=== PATIENT | female | born 1990 | race Caucasian/White ===

== ENCOUNTER 2017-03-16 21:04 | Inpatient (IN) | payer OTHER ==
[~2017-03-16] VITALS: Ht 152.4 cm; Wt 50.0 kg
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
[2017-03-16 22:13] LABS: ABSOLUTE BASOPHIL COUNT 0.1 /CUMM (0.0-0.2); ABSOLUTE EOSINOPHIL COUNT 0.2 /CUMM (0.0-0.7); ABSOLUTE GRANULOCYTE CT 3.6 /CUMM (1.4-6.5); ABSOLUTE LYMPH COUNT 1.7 /CUMM (1.2-3.4); ABSOLUTE MONOCYTE COUNT 0.9 /CUMM (0.10-0.60); EOSINOPHIL % 2.8 % (0-5); GRANULOCYTE % 55.8 % (42.2-75.2); HEMATOCRIT 39.5 % (37-47); MEAN CORPUSCULAR HGB 29.5 PG (27.0-31.0); MEAN CORPUSCULAR HGB CONC 33.6 G/DL (33.0-37.0); MEAN PLATELET VOLUME 9.8 FL (7.4-10.4); PLATELET COUNT 333 /CUMM (130-400); RBC DISTRIBUTION WIDTH 13.8 % (11.5-14.5); RED BLOOD CELL CT 4.49 /CUMM (4.20-5.40); WHITE BLOOD CELL COUNT 6.5 /CUMM (4.8-10.8)
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
[2017-03-18] MEDS ORDERED: ALPRAZOLAM0.25 M1 PO (12:14)
[2017-03-18] MEDS ORDERED: VITAMIN D250000 UNIT PO (12:16)
[2017-03-18] MEDS ORDERED: RITALIN5 M2 PO (12:17)
[2017-03-18] MEDS ORDERED: TOLTERODINE TART4 M1 PO (12:18)
[2017-03-18] MEDS ORDERED: GABAPENTIN100 M2 PO (12:19)
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
--- NOTE | 2017-03-18 14:36 | SOCIAL WORKER PROG NOTE PSYCH ---
Social Work Progress Note Progress Note Pt is unable to participate in social hx due to extreme mood lability.
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
[2017-03-18 21:44] VITALS: BP 112/53
[2017-03-19 08:15] VITALS: BP 144/64
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
[2017-03-19 12:08] VITALS: BP 123/76
--- NOTE | 2017-03-19 12:14 | Cons- Medical ---
General Information and HPI Consulting Request Date of Consult: 03/19/17 Requested By: KIMBERLY WAN,YUE Camp Reason for Consult: Medical H&P Source of Information: patient, old records Exam Limitations: poor historian History of Present Illness: This a 26-year-old female. She is a very poor informant. Periodically during the interview she becomes tangential and starts laughing and answers no to most of the medical questions asked. She hasn't been admitted to [facility] before so my history is very limited. She denies any medical problems, denies illicit drug use. Admits to tobacco and says she smokes a few cigarettes a day and other than that can't give me any history. When I asked her why the walker is at the bedside she said she doesn't use a walker and she's not sure why the staff put it there. Again she's not a reliable informant she denies chest pain shortness of breath cough sputum or any other complaints. Allergies/Medications Allergies: Coded Allergies: No Known Allergies (03/16/17) Home Med List: Alprazolam 0.25 MG TABLET 0.25 MG PO DAILY PRN ANXIETY (Reported) Ergocalciferol (Vitamin D2) (Vitamin D2) 50,000 UNIT CAPSULE 50,000 IU PO WEEKLY MS (Reported) Gabapentin 100 MG CAPSULE 100 MG PO Q8H PRN PAIN (Reported) Methylphenidate HCl (Ritalin) 5 MG TABLET 5 MG PO BID UNKNOWN (Reported) Tolterodine Tartrate (Tolterodine Tartrate ER) 4 MG CAP.ER.24H 4 MG PO DAILY MS (Reported) Current Medications: Current Medications Sig/Stacy Start time Last Medication Dose Route Stop Time Status Admin Acetaminophen 650 MG Q6P PRN 03/18 1100 AC PO Al Hydroxide/Mg 30 ML Q4-6 PRN PRN 03/18 1100 AC Hydroxide PO Benztropine Mesylate 1 MG Q6P PRN 03/18 1100 AC IM Benztropine Mesylate 1 MG Q6P PRN 03/18 1100 AC PO Diphenhydramine HCl 0 .STK-MED ONE 03/18 1246 DC .ROUTE Diphenhydramine HCl 50 MG ONCE ONE 03/18 1245 DC 03/18 IM 03/18 1246 1247 Gabapentin 300 MG Q6P PRN 03/18 1100 AC PO Haloperidol 0 .STK-MED ONE 03/18 1246 DC .ROUTE Haloperidol 5 MG ONCE ONE 03/18 1245 DC 03/18 IM 03/18 1246 1247 Haloperidol 2.5 MG Q6P PRN 03/18 1100 AC IM Haloperidol 2 MG Q6P PRN 03/18 1100 AC PO Lorazepam 0 .STK-MED ONE 03/18 1246 DC .ROUTE Lorazepam 2 MG ONCE ONE 03/18 1245 DC 03/18 IM 03/18 1246 1247 Magnesium Hydroxide 30 ML AT BEDTIME PRN 03/18 1100 AC PO Nicotine 2 MG Q2P PRN 03/18 1100 AC PO Review of Systems Review of Systems Constitutional: Denies: no symptoms, chills, diaphoresis, fever. Cardiovascular: Denies: no symptoms, chest pain, edema, orthopena. Respiratory: Denies: no symptoms, cough, hemoptysis, orthopnea. GI: Denies: no symptoms, abdominal pain, bloating, constipation. Genitourinary: Denies: no symptoms, discharge, dysuria. All Other Systems: Reviewed and Negative Comments Unreliable historian. 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 She is unemployed. She says that she's not sexually active and her last menstrual period was a few weeks ago. She denies having children. She says her only medical history is that of a lumpectomy for benign breast tumor couple of years ago. The past medical history here says MS but she denies it. Exam & Diagnostic Data Last 24 Hrs of Vital Signs/I&O Vital Signs Date Time Temp Pulse Resp B/P B/P Pulse O2 O2 Flow FiO2 Mean Ox Delivery Rate 03/19 815 96.0 94 144/64 03/18 2144 97.4 96 112/53 03/18 2013 96.4 72 17 110/60 97 Room Air 03/18 1855 96.8 78 18 113/58 100 03/18 1545 97.0 77 18 106/56 100 Room Air Intake & Output 03/19 1600 03/19 0800 03/19 0000 Intake Total Output Total Balance Patient 110 lb Weight Physical Exam General Appearance: well developed/nourished, no apparent distress, alert, awake Head: atraumatic, normal appearance Eyes: Bilateral: normal appearance, PERRL, EOMI. Ears, Nose, Throat: normal pharynx, normal ENT inspection Neck: normal inspection, supple, full range of motion Respiratory: normal breath sounds, chest non-tender, no respiratory distress Cardiovascular: regular rate/rhythm Gastrointestinal: normal bowel sounds, soft, non-tender, no organomegaly Back: normal inspection, normal range of motion Neurologic/Psych: no motor/sensory deficits, awake, alert Other Physical Findings: She is awake and alert. Her motor exam is nonfocal. She won't cooperate much with the sensory exam. Her reflexes are 2+ and symmetric. Grossly her cranial nerves appear intact but she again she won't cooperate. She's doesn't mean to be uncooperative but at times she's appears to have a hard time following commands and suddenly starts smiling inappropriately or talking tangentially. Last 24 Hrs of Labs/Bert: Laboratory Tests 03/17 03/17 1106 1106 Urines Urinalysis MANY H Urine Color (YEL,AMB,STR) YEL Urine Clarity (CLEAR) CLDY H Urine pH (5.0 - 8.0) 6.5 Ur Specific [place] (1.001 - 1.035) 1.025 Urine Protein (NEG,<30 MG/DL) TRACE H Urine Ketones (NEG) NEG Urine Nitrite (NEG) NEG Urine Bilirubin (NEG) NEG Urine Urobilinogen (0.1 - 1.0 EU/dl) 1.0 Ur Leukocyte Esterase (NEG) NEG Ur Microscopic SEDIMENT EXAMINED Urine WBC (0 - 2 /HPF) 1-3 H Ur Epithelial Cells (NONE,FEW) FEW Urine Hemoglobin (NEG) NEG Urine Glucose (N MG/DL) NEG Urine Test NEGATIVE 03/16 03/16 2155 2144 Chemistry Sodium (137 - 145 mmol/L) 141 Potassium (3.5 - 5.1 mmol/L) 3.8 Chloride (98 - 107 mmol/L) 106 Carbon Dioxide (22 - 30 mmol/L) 23 Anion Gap (5 - 16) 12 BUN (7 - 17 mg/dL) 9 Creatinine (0.5 - 1.0 mg/dL) 0.7 Estimated GFR (>60 ml/min) > 60 BUN/Creatinine Ratio (7 - 25 %) 12.9 Glucose (65 - 99 mg/dL) 89 Hemoglobin A1c (4.2 - 5.8 %) 5.4 Calcium (8.4 - 10.2 mg/dL) 9.3 Total Bilirubin (0.2 - 1.3 mg/dL) 0.4 AST (14 - 36 U/L) 30 ALT (9 - 52 U/L) 33 Alkaline Phosphatase (<127 U/L) 59 Total Protein (6.3 - 8.2 g/dL) 6.6 Albumin (3.5 - 5.0 g/dL) 4.3 Globulin (1.9 - 4.2 gm/dL) 2.3 Albumin/Globulin Ratio (1.1 - 2.2 %) 1.9 Triglycerides (<150 mg/dL) 79 Cholesterol (<200 MG/DL) 180 LDL Cholesterol, Calc (65 - 129 mg/dL) 97 HDL Cholesterol (40 - 60 mg/dL) 68 H Cholesterol/HDL Ratio (0.00 - 4.23 %) 3 TSH (0.270 - 4.200 uIU/mL) 0.852 Hematology CBC w Diff NO MAN DIFF REQ WBC (4.8 - 10.8 /CUMM) 6.5 RBC (4.20 - 5.40 /CUMM) 4.49 Hgb (12.0 - 16.0 G/DL) 13.3 Hct (37 - 47 %) 39.5 MCV (81.0 - 99.0 FL) 88.0 MCH (27.0 - 31.0 PG) 29.5 RDW (11.5 - 14.5 %) 13.8 Plt Count (130 - 400 /CUMM) 333 MPV (7.4 - 10.4 FL) 9.8 Gran % (42.2 - 75.2 %) 55.8 Lymphocytes % (20.5 - 51.1 %) 26.0 Monocytes % (1.7 - 9.3 %) 14.4 H Eosinophils % (0 - 5 %) 2.8 Basophils % (0.0 - 2.0 %) 1.0 Absolute Granulocytes (1.4 - 6.5 /CUMM) 3.6 Absolute Lymphocytes (1.2 - 3.4 /CUMM) 1.7 Absolute Monocytes (0.10 - 0.60 /CUMM) 0.9 H Absolute Eosinophils (0.0 - 0.7 /CUMM) 0.2 Absolute Basophils (0.0 - 0.2 /CUMM) 0.1 PUBS MCHC (33.0 - 37.0 G/DL) 33.6 Toxicology Methadone Screen Cancelled Barbiturate Screen Cancelled Ur Phencyclidine Scrn Cancelled Amphetamines Screen Cancelled U Benzodiazepines Scrn Cancelled Urine Cocaine Screen Cancelled Urine Cannabis Screen Cancelled Serum Alcohol (<10 MG/DL) 18.0 Assessment/Plan Assessment/Plan This is a 26-year-old female who was admitted with inappropriate, agitated behavior and questionable psychosis. Once her mentation improves or we can get in touch with the family we need to get more of a collateral history. Right now physical exam eng and lab eng everything is within normal limits. We need more collateral about this questionable diagnosis of MS that's in her chart. Her U tox is positive for amphetamines and treatment is as per psych right now for the acute psychosis. She will need outpatient follow-up on discharge. Problem List: 1. Depression Consult Acknowledgment - Thank you for your consult request.
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
[2017-03-19 16:20] VITALS: BP 126/76
--- NOTE | 2017-03-19 18:28 | SOCIAL WORKER PROG NOTE PSYCH ---
Social Work Progress Note Progress Note 4:25pm This resume writer met with patient. Patient discussed events that led to current inpt admission. "Apparently I was acting out of line at the local drinkering." Pt stated that she was excited about returning home after living in [place] "for a long time" and "I got a little too excited." Patient denied any past MH tx and stated that her only treatment has been medical related to MS. Patient presented with labile mood, very tearful at times and very excited/laughing at other times. Patient appeared to be in agreement with attending IOP after discharge stating, "I don't want to be here /, so that would make sense." Patient appears to be adjusting to the inpatient unit. She denied SI/HI/AH/VH and agreed to inform staff of any concerns or symptoms that may arise or is she is feeling unsafe.
[2017-03-19 20:03] VITALS: BP 139/80
[2017-03-20 12:02] VITALS: BP 119/78
--- NOTE | 2017-03-20 15:34 | CP SOUTH PROGRESS NOTE PSYCH ---
Psych (Inpt) Progress Note Progress Note Progress Note: SUBJECTIVE: Pt visiting with mother, coloring. Introduced mother as "the reason for all this" and waved hands around her. Pt states she is feeling good, doing well, asked about change in meds for incontinence. Feels that ditropan may be working better than home med, and is taking advantage of inpt admission to practice "not wearing briefs" since BRs are so close. Pt denied SI/HI/SIB, but possible AVH "how would I know?" Pt stated she has an "internal dialog" but knows it is her voice, noncommand, nonthreatening. Denies s/e to meds. HYad prn for bedtime, slept well after that, stated "I really needed sleep." OBJECTIVE: Per nursing, pt slept well o/n, in beh control, aherent with meds and staff instructions. Pt using flowery language, symbolic statements, laughing frequently. MEDS: see med list (unable to import list currently) ditropan olanzepine gabapentin ativan NRT MOM Maalox Tylenol LABS: amphet+, CB+, HDL 68 MSE: GEN: Alert, oriented, thin, hirsut, "bouncy", excessively cooperative, darting eye contact, NAD SPEECH: fast, soft, fluent. 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 Pt seems to be mildly improving today, but not at baseline. Continue plan. -cont meds above -pt feels ditropan may be working better than home med for incontinence, reeval before d/c -SW to coordinate dispo when cleared -cont plan per Dr Mars note.
[2017-03-20 16:19] VITALS: BP 125/75
[2017-03-20 20:59] VITALS: BP 144/67
[2017-03-21 08:25] VITALS: BP 113/63
[2017-03-21 12:18] VITALS: BP 132/69
[2017-03-21 15:22] VITALS: BP 126/79
[2017-03-21 20:39] VITALS: BP 142/73
--- NOTE | 2017-03-21 22:06 | CP SOUTH PROGRESS NOTE PSYCH ---
Psych (Inpt) Progress Note Progress Note Progress Note: SUBJECTIVE: "Valeria started to see things differently today...like maybe, you know I would never have come here on my own...but maybe I can find some universal good and connection...help myself...maybe I was indulging..." Pt denies HI/AVH/ SIB, but some passive SI thoughts "maybe they are always around there somewhere but it would not be something I could do." Pt denies s/e to meds, abnormal movements, pain, other physical complaints. Pt reported improved sleep OBJECTIVE: Per nursing, pt freqently reponding to internal dialog, bizarre, childlike. Literally jumping up and down at med window. Chatted with roommate midnight-1am, then slept well. Adherent with meds and staff instructions. Pt using flowery language, symbolic statements, laughing frequently. Current Medications Sig/Stacy Start time Last Medication Dose Stop Time Status Admin Acetaminophen 650 MG Q6P PRN 03/18 1100 AC (Tylenol) Al Hydroxide/Mg 30 ML Q4-6 PRN PRN 03/18 1100 AC Hydroxide (Maalox Plus) Gabapentin 100 MG Q8 03/19 1432 AC 03/21 (Neurontin) 1529 Lorazepam 0.5 MG Q6-PRN PRN 03/19 1645 AC 03/21 (Ativan) 03/26 1444 2003 Magnesium Hydroxide 30 ML AT BEDTIME PRN 03/18 1100 AC (Milk Of Magnesia) Nicotine 2 MG Q2P PRN 03/18 1100 AC 03/21 (Nicotine) 2003 Olanzapine 5 MG 0800,03/19 2100 AC 03/21 (Zyprexa) 0919 Olanzapine 2.5 MG Q4 HRS NEEDED PRN 03/19 1445 AC 03/21 (Zyprexa 2.5MG) 0952 Oxybutynin Chloride 2.5 MG BID 03/19 2200 AC 03/21 (Ditropan 2.5MG 0919 Tab(1/2 of a 5mg tab)) Vital Signs Date Time Temp Pulse Resp B/P B/P Pulse O2 O2 Flow FiO2 Mean Ox Delivery Rate 03/21 2039 98.0 103 142/73 03/21 1522 97 126/79 03/21 1218 94 132/69 03/21 825 97.3 75 113/63 03/20 2059 97.3 83 144/67 LABS: amphet+, CB+, HDL 68 MSE: GEN: Alert, oriented, thin, hirsut, curled up in office chair, cooperative, timid eye contact, NAD SPEECH: fast, soft, fluent MOTOR: no tics, tremors, stereotypy MOOD: "different, better" AFFECT: more settled, congruent, good range, nonlabile TP: generally logical, at times loose and rapid TC: denies SI/HI/SIB, possible AVH, no paranoia, gradiosity, delusions, ruminations, obsessions evident COG: mildly impaired J/I: fair/impaired but improving A&P: 26 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 Pt seems more settled today, starting to clear with improved insight, able to see need for admission and that she had gotten "out of control." Continue plan. -cont meds above -pt feels ditropan may be working better than home med for incontinence, reeval before d/c -SW to coordinate dispo when cleared -cont plan per Dr Mars note.
[2017-03-22 08:16] VITALS: BP 131/55
--- NOTE | 2017-03-22 11:52 | SOCIAL WORKER PROG NOTE PSYCH ---
Social Work Progress Note Progress Note This play writer met with pt. Pt reported that she felt she was doing better and identified stress as her primary reason for needing current inpt admission. She expressed interest in attending IOP. She agreed to scheduling a family meeting with her mother prior to discharging from [facility]. Per note received by Anna Marie, [employer], pt called the Access Line regarding [facility] insurance.
[2017-03-22 12:25] VITALS: BP 120/64
--- NOTE | 2017-03-22 14:57 | CP SOUTH PROGRESS NOTE PSYCH ---
Psych (Inpt) Progress Note Progress Note Include the following elements, when applicable: Involvement in the active treatment of the patient with behavioral observations of the patient and the patient's response to the treatment. Review of the ongoing treatment process in the context of the treatment plan. Indication of how multi-disciplinary staff members are carrying out the treatment plan. Plans for future interventions and recommendations for revision of the treatment plan. Liaison with other physicians/providers. Progress Note: I discussed this patient's progress to date, current mental status, treatment process in the context of the treatment plan, and discharge planning with staff/ team in the daily morning inpatient team meeting. I also met with the patient myself in individual session. Current Medications Sig/Stacy Start time Last Medication Dose Route Stop Time Status Admin Acetaminophen 650 MG Q6P PRN 03/18 1100 AC PO Al Hydroxide/Mg 30 ML Q4-6 PRN PRN 03/18 1100 AC Hydroxide PO Gabapentin 100 MG Q8 03/19 1432 AC 03/22 PO 1325 Lorazepam 0.5 MG Q6-PRN PRN 03/19 1645 AC 03/21 PO 03/26 1444 2004 Magnesium Hydroxide 30 ML AT BEDTIME PRN 03/18 1100 AC PO Nicotine 2 MG Q2P PRN 03/18 1100 AC 03/22 PO 1221 Olanzapine 5 MG 0800 03/23 0800 AC PO Olanzapine 10 MG 2000 03/22 2000 AC PO Olanzapine 5 MG 0800,2100 03/19 2100 DC 03/22 PO 0843 Olanzapine 2.5 MG Q4 HRS NEEDED PRN 03/19 1445 AC 03/22 PO 1221 Oxybutynin Chloride 2.5 MG BID 03/19 2200 AC 03/22 PO 0843 Vital Signs Date Time Temp Pulse Resp B/P B/P Pulse O2 O2 Flow FiO2 Mean Ox Delivery Rate 03/22 1225 85 120/64 03/22 0816 97.0 104 131/55 03/21 2039 98.0 103 142/73 03/21 1522 97 126/79 A: Chart, progress notes, labs, vital signs and medication list reviewed. No new lab results today. HR mildly tachy last kristy/this morning. Will closely monitor. Otherwise, vital signs are within normal limits. Per nursing staff, patient presents extremely labile, demonstrates inappropriate boundaries with select male peers, and appears nonsensical at times in groups. Met with patient at 2:15PM. She reports feeling "a lot better" than when she first arrived to unit. States she feels less anxious. Reports her inpatient experience has been "cathartic", enjoys the people and groups on unit. Reports she is ready to go home. When informed that she would not be discharged today, her mood dramatically changed, from being calm and engaging to elevated, intensely irritable, then crying uncontrollably. Shortly after, she was seen laughing inappropriately, speaking in metaphorical language, "my mother is like a Angela, you have to stand back to take her all in." Frequently observed making odd facial expressions. I asked patient if she had contact with her mother over the weekend; she stated yes. Reports visit was good. I asked patient if she would sign ROIs for her mother and neurologist for collateral. Patient again perseverated on discharge; informed her of process given that she is on PEC; became tearful; stood up and abruptly left office. Interview terminated by patient. Patient denied SI and HI. Denied AH and VH. Denied feeling helpless, hopeless, worthless and guilty. Affect quite labile. Mood, "a lot better." Appears hypomanic. Rapid speech, normal in tone and volume; non-pressured. + psychomotor agitation. Fidgety and restless in chair. Fair eye contact. Thought process loose at times, but generally linear. Continues with racing thoughts, per her report. Sleeping well. Eating Well. Reported good energy level. No evidence of paranoia or delusional thought content on encounter. Insight/judgement limited. Denies medication SEs. Agreeable to continue taking. Patient making slow progress. Appears hypomanic with somewhat improved thought organization. Continues to require inpatient hospitalization for further stabilization, safety and monitoring. P: -continue to encourage pt to sign ESTEFANIA for collateral from mother and neurologist (as needed); dana family meeting [facility]. -monitor for safety, mood, SI, psychosis. -increase Zyprexa 5mg BID to 5mg QAM and 10mg QPM for mood stabilization. -dispo planning per primary team.
[2017-03-22 15:38] VITALS: BP 124/76
[2017-03-22 19:50] VITALS: BP 129/82
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
[2017-03-23 12:13] VITALS: BP 115/73
--- NOTE | 2017-03-23 14:06 | SOCIAL WORKER PROG NOTE PSYCH ---
Social Work Progress Note Progress Note GONZALO GOINS [id number] 1990 GONZALO GOINS [id number] Pended Authorization # Client Authorization # Type of Request [id number] CONCURRENT Date of Admission/ Start of Services Requested From Submission Date 03/18/2017 03/23/2017 03/23/2017
--- NOTE | 2017-03-23 14:10 | SOCIAL WORKER PROG NOTE PSYCH ---
Social Work Progress Note Progress Note This repairer typewriter met with pt. Pt stated, "I'm feeling much better. I had a bowel movement." Pt was willing to participate in a family meeting and signed a ESTEFANIA for her parents. Pt continues to express interest in attending IOP after discharge from [facility]. This repairer typewriter spoke briefly with pt's father, Hans, regarding a family meeting. He requested that I call the pt's mother, Brenna, as he is currently at work. A was left with a call back number.
[2017-03-23 16:23] VITALS: BP 126/78
[2017-03-23 20:01] VITALS: BP 134/82
[2017-03-24 09:25] VITALS: BP 148/72
[2017-03-24 12:30] VITALS: BP 117/63
--- NOTE | 2017-03-24 13:41 | CP SOUTH PROGRESS NOTE PSYCH ---
Psych (Inpt) Progress Note Progress Note I reviewed the patients electronic health record Nurse Jaimee gave a verbal report Patients sleep record indicated pt. slept well BP 117/63 mmHg, Pulse 98, Temp 98.2, I interviewed patient No new labs past 24 hours Background: 26-year-old White woman with a history of trauma and polysubstance abuse; she presented to [facility] ED on 03/17/17 by ambulance for agitation and bizarre behavior. Diagnoses of record: Unspecified mood disorder with psychotic features R/O Substance induced mood disorder R/O Substance induced psychosis R/O Unspecified psychosis R/O Bipolar disorder with psychotic features R/O Amphetamine use disorder (as patient is prescribed Ritalin) Cannabis use disorder R/O Alcohol use disorder Mental Status Update: Patient was laughing to herself most of the interview, she was disorganized in her thinking and speech Showed good eye contact, talkative, increased psychomotor activity Responding to internal stimuli, auditory hallucinations She reported some anxiety, denies suicidal ideation, denied homicidal ideation, no specific delusions identified because the thoughts were disjointed Alert and oriented PLAN: After discussing options with the patient, we agreed to: Increase Zyprexa at bedtime to 15 mg
[2017-03-24 16:01] VITALS: BP 126/52
--- NOTE | 2017-03-24 16:50 | SOCIAL WORKER PROG NOTE PSYCH ---
Social Work Progress Note Progress Note This conventional underwriter met with pt. This conventional underwriter assisted pt in contacting [place] regarding her insurance as she would like to activate her insurance in [place] since moving here from [place]. Following this call, [place] [facility] was contacted, however, the office was closed. This conventional underwriter will assist pt in following up with [place] [facility] tomorrow. This conventional underwriter left a vm for Marilee in finance ([facility]) to update.
[2017-03-24 19:42] VITALS: BP 113/74
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
[2017-03-25 12:30] VITALS: BP 149/74
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
[2017-03-25 19:47] VITALS: BP 123/78
[2017-03-26 07:56] VITALS: BP 121/83
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
[2017-03-26 12:18] VITALS: BP 133/75
[2017-03-26 15:47] VITALS: BP 133/90
--- NOTE | 2017-03-26 16:11 | SOCIAL WORKER PROG NOTE PSYCH ---
Social Work Progress Note Progress Note Patient called [employer] regarding [place] insurance. (Disenrollment was filed on 03/24/17 with [place] insurance). [employer] provided a application ID number: [id number]. This information, including ID number was provided to Marilee in [place]. This account underwriter met with pt. She reported feeling "a little tired" and reported difficulty falling asleep at night. Pt discussed reaching a point of "I realized I need to take the medications more seriously as the doctor prescribed and not think how I think they should be. I actually do have a problem." Pt presented with some lability of moods during this conversation. This account underwriter and pt discussed how she could effectively utilize the weekend. She identified plans to create a way to track her moods and strategies to utilize when struggling, to include utilizing staff support. Pt continues to be motivated to attend IOP as part of her discharge plan. She further discussed plans to continue with the hospital schedule/routine (such as not sleeping in) in addition to IOP once she discharges from the hospital.
[2017-03-26 19:59] VITALS: BP 115/68
[2017-03-27 08:52] VITALS: BP 117/68
--- NOTE | 2017-03-27 11:17 | CP SOUTH PROGRESS NOTE PSYCH ---
Psych (Inpt) Progress Note Progress Note Include the following elements, when applicable: Involvement in the active treatment of the patient with behavioral observations of the patient and the patient's response to the treatment. Review of the ongoing treatment process in the context of the treatment plan. Indication of how multi-disciplinary staff members are carrying out the treatment plan. Plans for future interventions and recommendations for revision of the treatment plan. Liaison with other physicians/providers. Progress Note: Pt notes that she had some DFA overnight but slept well when went to sleep. Denies SI or HI. Denies AVHs though very bizzare affect when asked about psychotic sx. Current Medications Sig/Stacy Start time Last Medication Dose Route Stop Time Status Admin Acetaminophen 650 MG Q6P PRN 03/18 1100 03/26 PO 0954 Al Hydroxide/Mg 30 ML .STK-MED ONE 03/26 2037 DC Hydroxide PO 03/26 2038 Al Hydroxide/Mg 30 ML Q4-6 PRN PRN 03/18 1100 03/26 Hydroxide PO 203 Ergocalciferol 50,000 IU ONCE A WEEK 03/27 0800 03/27 PO 0915 Gabapentin 100 MG Q8 03/19 1432 03/27 PO 0915 Lorazepam 1 MG 0009 03/27 0009 DC 03/27 PO 03/27 0010 0009 Lorazepam 0.5 MG Q6-PRN PRN 03/26 1800 AC 03/26 PO 04/02 1759 2129 Lorazepam 0.5 MG Q6-PRN PRN 03/19 1645 DC 03/26 PO 03/26 1444 1330 Magnesium Hydroxide 30 ML AT BEDTIME PRN 03/18 1100 03/26 PO 2036 Nicotine 2 MG Q2P PRN 03/18 1100 AC 03/25 PO 1206 Olanzapine 5 MG 0009 03/27 0009 DC 03/27 PO 03/27 0010 0009 Olanzapine 15 MG AT BEDTIME 03/24 2200 AC 03/26 PO 2128 Olanzapine 5 MG 0800 03/23 0800 03/27 PO 0916 Olanzapine 2.5 MG Q4 HRS NEEDED PRN 03/19 1445 03/26 PO 2342 Oxybutynin Chloride 2.5 MG BID 03/19 2200 03/27 PO 0916 Propranolol HCl 10 MG .STK-MED ONE 03/26 185 DC PO 03/26 1856 Propranolol HCl 10 MG Q8P PRN 03/23 1645 AC 03/26 PO 1854 Trazodone HCl 50 MG AT BEDTIME NEED.. 03/27 0009 AC 03/27 PO 000 Vital Signs Date Time Temp Pulse Resp B/P B/P Pulse O2 O2 Flow FiO2 Mean Ox Delivery Rate 03/27 0852 96.1 103 117/68 03/26 1959 96.9 86 115/68 03/26 1855 96 133/90 03/26 1547 96 133/90 03/26 1218 100 133/75 No new labs MSE Appears as stated age. Cooperative behavior, good, appropriate eye contact. Nl speech rate and prosody. No psychomotor retardation or agitation. Mood fine Affect bizzare, irritable, constricted, inappropriate, non-liable. Linear and goal directed thought process. Denies SI or HI. Does not appear to be responding to internal stimuli. Denies AVHs, paranoia, or delusions. I/J: limited A/P: Pt with mood disorder, PTSD and recent bizzare behaviors and affect. - Increase trazodone to 100mg QHS PRN - Otherwise continue current medication regimen
[2017-03-27 12:45] VITALS: BP 112/79
[2017-03-27 16:06] VITALS: BP 117/69
--- NOTE | 2017-03-27 16:23 | PN- Att Addend ---
Attending Addendum Attending Brief Note Patient seen and examined. I was asked to see this patient because she was feeling that she is having a flareup of MS. Patient probably has been walking around without any walker or cane. Plan of care discussed with the medical team and the patient. Available lab work and radiology test reports were reviewed. Vital Signs Date Time Temp Pulse Resp B/P B/P Pulse O2 O2 Flow FiO2 Mean Ox Delivery Rate 03/27 1606 80 117/69 03/27 1245 116 112/79 03/27 0852 96.1 103 117/68 03/26 1959 96.9 86 115/68 03/26 1855 96 133/90 Exam: General: Patient awake alert oriented without any distress; patient appears to have inappropriate behavior and is fidgety CVS: S1 plus S2 without any murmur or gallops Chest: Few scattered crepitation without any wheeze. There is no respiratory distress. 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 Patient has no blurred vision. There may be a slight weakness of right thigh; patient was ambulated and she did well. Extremities: No edema; no clubbing or cyanosis noted Current Medications Sig/Stacy Start time Last Medication Dose Route Stop Time Status Admin Acetaminophen 650 MG Q6P PRN 03/18 1100 AC 03/26 PO 0954 Al Hydroxide/Mg 30 ML .STK-MED ONE 03/26 2037 DC Hydroxide PO 03/26 2038 Al Hydroxide/Mg 30 ML Q4-6 PRN PRN 03/18 1100 AC 03/26 Hydroxide PO 203 Ergocalciferol 50,000 IU ONCE A WEEK 03/27 0800 AC 03/27 PO 0915 Gabapentin 100 MG Q8 03/19 1432 AC 03/27 PO 1603 Lorazepam 1 MG 00003/27 0009 DC 03/27 PO 03/27 0010 000 Lorazepam 0.5 MG Q6-PRN PRN 03/26 1800 AC 03/26 PO 04/02 Magnesium Hydroxide 30 ML AT BEDTIME PRN / 1100 AC 03/26 PO 2036 Nicotine 2 MG Q2P PRN 03/18 1100 AC 03/25 PO 1206 Olanzapine 5 MG 00003/27 0009 DC 03/27 PO 03/27 0010 0009 Olanzapine 15 MG AT BEDTIME 03/24 2200 AC 03/26 PO 2128 Olanzapine 5 MG 0800 03/23 0800 AC 03/27 PO 0916 Olanzapine 2.5 MG Q4 HRS NEEDED PRN 03/19 1445 AC 03/26 PO 2342 Oxybutynin Chloride 2.5 MG BID 03/19 2200 AC 03/27 PO 0916 Propranolol HCl 10 MG .STK-MED ONE 03/26 1855 DC PO 03/26 1856 Propranolol HCl 10 MG Q8P PRN 03/23 1645 AC 03/26 PO 1855 Trazodone HCl 100 MG AT BEDTIME NEED.. 03/27 1130 AC PO Trazodone HCl 50 MG AT BEDTIME NEED.. 03/27 0009 DC 03/27 PO 0009 Assessment * History of MS- based on examination no evidence of any flareup * History of anxiety * Unspecified mood disorder * PTSD * Cannabis use * amphetamine use Plan * I asked nursing staff to provide patient with a walker for her safety. She should be using a walker for ambulation if she feels weak in her legs. * Patient should be reassessed on Wednesday by the medicine consult. * Continue current medications
[2017-03-27 19:53] VITALS: BP 134/75
[2017-03-28 07:51] VITALS: BP 122/80
[2017-03-28 12:07] VITALS: BP 121/96
--- NOTE | 2017-03-28 12:21 | CP SOUTH PROGRESS NOTE PSYCH ---
Psych (Inpt) Progress Note Progress Note Include the following elements, when applicable: Involvement in the active treatment of the patient with behavioral observations of the patient and the patient's response to the treatment. Review of the ongoing treatment process in the context of the treatment plan. Indication of how multi-disciplinary staff members are carrying out the treatment plan. Plans for future interventions and recommendations for revision of the treatment plan. Liaison with other physicians/providers. Progress Note: Pt notes that slep well with trazodone overnight. Feels that is getting better but notes passive SI when frustrated with something. When asked about psychotic sx, initally stated no but when pressed has AHs of voice with accent keeping running commentary of what she does. She was not sure if was her own voice or "just stuff in my head" or "my own internal monologue." Denies VHs. Current Medications Sig/Stacy Start time Last Medication Dose Route Stop Time Status Admin Acetaminophen 650 MG .STK-MED ONE 03/27 1722 DC PO 03/27 1723 Acetaminophen 650 MG Q6P PRN 03/18 1100 AC 03/27 PO 1721 Al Hydroxide/Mg 30 ML .STK-MED ONE 03/27 2215 DC Hydroxide PO 03/27 2216 Al Hydroxide/Mg 30 ML Q4-6 PRN PRN 03/18 1100 AC 03/27 Hydroxide PO 2214 Ergocalciferol 50,000 IU ONCE A WEEK 03/27 0800 AC 03/27 PO 0915 Gabapentin 100 MG Q8 03/19 1432 AC 03/28 PO 0835 Lorazepam 0.5 MG Q6-PRN PRN 03/26 1800 AC 03/28 PO 04/02 1759 0059 Magnesium Hydroxide 30 ML AT BEDTIME PRN / 1100 AC 03/26 PO 2036 Nicotine 2 MG Q2P PRN 03/18 1100 AC 03/27 PO 1846 Olanzapine 15 MG AT BEDTIME 03/24 2200 AC 03/27 PO 2136 Olanzapine 5 MG 0800 03/23 0800 AC 03/28 PO 0835 Olanzapine 2.5 MG Q4 HRS NEEDED PRN 03/19 1445 03/28 PO 1148 Oxybutynin Chloride 2.5 MG BID 03/19 2200 03/28 PO 0835 Propranolol HCl 10 MG Q8P PRN 03/23 1645 AC 03/27 PO 1845 Trazodone HCl 100 MG AT BEDTIME NEED.. 03/27 1130 AC 03/27 PO 2213 Vital Signs Date Time Temp Pulse Resp B/P B/P Pulse O2 O2 Flow FiO2 Mean Ox Delivery Rate 03/28 1207 96 121/96 03/28 0751 96.6 100 122/80 03/27 1953 97.6 96 134/75 03/27 1845 80 117/69 03/27 1606 80 117/69 03/27 1245 116 112/79 MSE Appears as stated age. Cooperative behavior, good, appropriate eye contact. Nl speech rate and prosody. No psychomotor retardation or agitation. Mood fine Affect bizzare, irritable, constricted, inappropriate, non-liable. Linear and goal directed thought process. Denies SI or HI. Does not appear to be responding to internal stimuli. Denies VHs, +AHs of voice, paranoia, or delusions. I/J: limited A/P: Pt with mood disorder, PTSD and recent bizzare behaviors and affect. - Increase zypexa from 15mg to 20mg nightly for ongoing psychotic sx - Continue current medication regimen
[2017-03-28 16:15] VITALS: BP 121/63
[2017-03-28 20:07] VITALS: BP 130/71
[2017-03-29 08:04] VITALS: BP 137/86
--- NOTE | 2017-03-29 10:37 | CP SOUTH PROGRESS NOTE PSYCH ---
Psych (Inpt) Progress Note Progress Note Include the following elements, when applicable: Involvement in the active treatment of the patient with behavioral observations of the patient and the patient's response to the treatment. Review of the ongoing treatment process in the context of the treatment plan. Indication of how multi-disciplinary staff members are carrying out the treatment plan. Plans for future interventions and recommendations for revision of the treatment plan. Liaison with other physicians/providers. Progress Note: I discussed this patient's progress to date, current mental status, treatment process in the context of the treatment plan, and discharge planning with staff/ team in the daily morning inpatient team meeting. I also met with the patient myself in individual session. Current Medications Sig/Stacy Start time Last Medication Dose Route Stop Time Status Admin Acetaminophen 650 MG Q6P PRN 03/18 1100 AC 03/27 PO 1721 Al Hydroxide/Mg 30 ML .STK-MED ONE 03/28 1543 DC Hydroxide PO 03/28 1544 Al Hydroxide/Mg 30 ML Q4-6 PRN PRN 03/18 1100 AC 03/28 Hydroxide PO 1542 Ergocalciferol 50,000 IU ONCE A WEEK 03/27 0800 AC 03/27 PO 0915 Gabapentin 100 MG Q8 03/19 1432 AC 03/29 PO 0720 Lorazepam 0.5 MG Q6-PRN PRN 03/26 1800 AC 03/28 PO 04/02 1759 0059 Magnesium Hydroxide 30 ML AT BEDTIME PRN 03/18 1100 AC 03/26 PO 2036 Nicotine 2 MG Q2P PRN 03/18 1100 AC 03/27 PO 1846 Olanzapine 20 MG AT BEDTIME 03/28 2200 AC 03/28 PO 2127 Olanzapine 15 MG AT BEDTIME 03/24 2200 DC 03/27 PO 2136 Olanzapine 5 MG 0800 03/23 0800 03/29 PO 0732 Olanzapine 2.5 MG Q4 HRS NEEDED PRN 03/19 1445 AC 03/28 PO 1148 Oxybutynin Chloride 2.5 MG BID 03/19 2200 AC 03/29 PO 0732 Propranolol HCl 10 MG Q8P PRN 03/23 1645 AC 03/27 PO 1845 Trazodone HCl 100 MG AT BEDTIME NEED.. 03/27 1130 AC 03/28 PO 2129 Vital Signs Date Time Temp Pulse Resp B/P B/P Pulse O2 O2 Flow FiO2 Mean Ox Delivery Rate 03/29 0804 95.5 98 137/86 03/28 2007 95.9 84 130/71 03/28 1615 108 121/63 03/28 1207 96 121/96 A: Chart, progress notes, labs, vital signs and medication list reviewed. Vital signs within normal limits. No new lab results today. Dr. Lehman's medical consult reviewed and appreciated. Patient seen at 10:15AM. She presents calm and cooperative on encounter. Reports feeling well. States she feels emotionally stronger than when she first arrived to unit. Patient's mood appears more stable, occasionally bizarre and jocular. She is able to answer questions appropriately. Affect bizarre at times. Speech normal in rate, tone and volume. Eye contact appropriate. She offers no complaints. Describes having a steadier gait with assistance from walker. Patient encouraged to continue using this for gait support. Rates anxiety a 3-5/ 10 (10 being the worst). Rates depression a 0/10 (10 being the worst). Reports improved sleep. Describes her appetite and energy level as "pretty good." Describes reduced racing thoughts with increase in Zyprexa. She denies active and passive suicidal ideation, plans and intent. Denies homicidal ideation. She denies auditory and visual hallucinations. There is no evidence of paranoia or ca delusional thought content. Thought process is linear and goal directed. Cognition grossly intact. She reports tolerating medications well and denies untoward effects. She is agreeable to continue medication regimen post-discharge and follow up with IOP treatment. She reports feeling safe and ready for discharge. Reviewed with patient that she is taking a total of Zyprexa 25mg daily (in divided doses), which is over the recommended daily dose. Educated her again that medication is being use to manage racing thoughts and mood lability. Patient verbalized understanding of education and medication dosage and is agreeable to continuing on this dose. Patient was seen an evaluated by statement clerks manager, Dr. Head. Per , the patient is medically cleared for discharge today. P: -discharge to home and parents today. Patient's mother to pick up worker patient from hospital. -f/u at [facility] with Dr. Cristine Valdivia on 04/15/17 at 2PM for outpatient management of MS. -f/u at [facility] for intake tomorrow, Wednesday03/30/17 at 10AM. -patient advised to abstain from all substances, attend daily to weekly AA/NA meetings and to obtain a sponsor for support in sobriety. -patient was advised that in the event of an emergency to call 211/911/go to the nearest emergency department. -patient was advised that in the event of an MS excerbation to call 911/go to the nearest emergency department. -all prescriptions were e-prescribed to [facility] in [place], [facility].
--- NOTE | 2017-03-29 10:52 | Patient Discharge Instructions ---
Psych Discharge Inst General Discharge Information Reason for Admission: Patient presented to [facility] Emergency Department on 03/17/17 by ambulance for agitation and bizarre behavior. Psy Discharge Primary Diag+ Unspecified mood disorder with psychotic features Psy Discharge Secondary Diag+ R/O Bipolar disorder with psychotic features; R/O PTSD; R/O Substance induced mood disorder; R/O Bipolar disorder with psychotic features; R/O Amphetamine use disorder; R/O Alcohol use disorder; R/O Hallucinogen disorder; Cannabis use disorder; Nicotine use disorder; Generalized anxiety disorder by history; Multiple Sclerosis; Urinary incontinence. Summary Tests/Major Procedures N/A Studies Pending at DC: N/A Patient Instructions Contact Information Your Psychiatrist on [facility] was KIMBERLY WAN,YUE Camp/ ROBERTO MONTGOMERY APRN. * If you are experiencing an emergency related to this hospitalization, please call [phone] to contact the treating psychiatrist or the psychiatrist-on- call. * To Request a copy of your medical records, please contact the Medical Records Department at [phone]. * To request results of studies pending at the time of discharge, please call [phone]. * Continue your Medications until directed to stop by your Healthcare provider. General Medication Information Please continue to take your new medications and your continued home medications , unless otherwise indicated on your discharge medication list, or unless directed by your or SUSANNA to stop them. Special Instructions: DIET: Regular. ACTIVITY LEVEL: As tolerated. Advance Directives Does the Patient have Medical Advance Directives No/Refused further info Does Pt have Psychiatric Advance Directives? No/Refused further info Does Patient have a Designated Surrogate Decision Maker: No Information About Psychiatric Advance Directives Provided? Refused Discharge Plan Post Hospital Treatment Plan: Post Discharge Referrals Provider Referral Service Date: 04/15/17 Referred To: [[facility]] [Dr. Cristine Valdivia] Notes: [facility] [address], [address] [place] [address] [phone] Appointment scheduled on , 04/15/[address] Valdivia. Provider Referral Service Date: 04/01/17 Referred To: [[facility]] Notes: [facility] [address] [place] [address], [address] [place], [place] [address] Appointment: , 04/01/17, 10:15am with ditch worker, Dr. Urias. Provider Referral Service Date: 03/30/17 Referred To: [[facility]] Notes: [address] [phone] Intake Appointment: 03/30/17 @ 10AM. Provider Referral Service Date: 03/29/17 Referred To: [[facility]] [Medical Group - Dr. Barlow] Notes: [address] [place] [id number] [phone] Please contact Beryl Quispe to arrange a follow-up appointment with Dr. Ki Barlow. Patient was advised that in the event of an emergency to call [phone]/go to the nearest emergency department.
--- NOTE | 2017-03-29 11:02 | SOCIAL WORKER PROG NOTE PSYCH ---
Social Work Progress Note Progress Note 10:15am SUSANNA Ann and this typewriter assembler met with patient. Pt reported improved mood, stating "I'm a little more relaxed. I'm better able to manage me. Journaling helps." Pt discussed plans to maintain a routine once she discharges from the hospital, utilizing parental support. Pt appears motivated to follow through with IOP upon discharge from [facility] and discussed looking forward to outpt treatment as she has found the groups here as helpful. She denied SI/HI/AH/VH. Pt was also in agreement to attending appointments through [facility] and a neurolgoist. She was informed that the [facility] has a 3- 4 week wait and agreed to have an appointment scheduled with her medical provider in [place] until she is able to begin treatment at [facility]. Pt will be provided with appointment dates and times once they become available. This typewriter assembler contacted the pt's mother by phone regarding discharge plans. She was in agreement with this and will be contacted with a discharge time. Pt signed a ESTEFANIA for [facility] and this typewriter assembler scheduled an appointment for primary care services on March at 10:15am with Dr. Urias.
[2017-03-29] MEDS ORDERED: OLANZAPINE5 M2 PO (12:07)
[2017-03-29] MEDS ORDERED: GABAPENTIN100 M2 PO (12:07)
[2017-03-29] MEDS ORDERED: TOLTERODINE TART4 M1 PO (12:07)
[2017-03-29] MEDS ORDERED: OLANZAPINE10 M1 PO (12:07)
[2017-03-29] MEDS ORDERED: NICORELIEF2 MG PO (12:07)
[2017-03-29] MEDS ORDERED: VITAMIN D250000 UNIT PO (12:07)
[2017-03-29 12:33] VITALS: BP 115/66
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
--- NOTE | 2017-03-29 16:51 | Event Note ---
Event Note Event Note: I was asked to evaluate this patient prior to discharge for any evidence of exacerbation of multiple sclerosis. I observed patient ambulating freely around the unit without the use of any assistive device. She reports a history of multiple sclerosis diagnosed at [facility] in [facility] She states that she has relocated back to [place] and is in the process of transferring her records to a neurologist specializing in multiple sclerosis at [facility]. She states that at baseline she does not use an assistive device although she reports having a walker at home which she uses intermittently when needed. She was provided with a walker during this admission however she reports not requiring it and has been ambulating freely. When observed working she occasionally appears unsteady but states that this is baseline for her and unchanged. She denies any history of falls. I recommended to the patient to follow-up with her neurologist at [facility]. There is no indication at this point in time for inpatient admission, testing or treatment.
--- NOTE | 2017-03-30 15:11 | IP INCIDENTAL NOTE PSYCH ---
See Addendum Incidental Note Notation: I received an email from Marsha England LCSW, from [facility] indicating that the patient's insurance is not activated. As a result she could not obtain her discharge prescriptions since yesterday. I confirmed this with the patient's outpatient pharmacy, [facility]. Reviewed issue with America Garcia LCSW, the patient's assigned inpatient SW. I spoke to the patient's mother at 3:18PM whom the patient is residing with and informed her that an indigent medication form has been completed and left with supervisor cell efficiency. I instructed the patient's mother to bring the patient to the hospital and call the nurse's stations #[phone]) so that nursing can have the patient sign the indigent medication form. Patient's verbalized understanding of instruction and aware [facility] closes at 7PM. Discharge prescriptions were called into [facility] pharmacy today. tig welder confirmed that staff will bring indigent medication form to hospital pharmacy for patient to sign on arrival so that she can obtain discharge prescriptions. Previously called in prescriptions were canceled at [facility] in [facility].
== END 2017-03-29 15:40 | DRG 755 ==
LOC: ERH 21:04 → ERHI 03-18 12:59 → CP SOUTH 03-18 12:59
PROVIDERS: Physician Assistant; ADMIT Psychiatry & Neurology Psychiatry
DX: F43.10 Post-traumatic stress disorder, unspecified (principal); F15.90 Other stimulant use, unspecified, uncomplicated; F12.90 Cannabis use, unspecified, uncomplicated
CPT/HCPCS: 80307; 81001; 81025; 93005; 93010; G0463; G0480; J0515; J1200; J1630